=== PATIENT | female | born 1965 | race Two or more races ===

== ENCOUNTER 2020-12-05 09:30 | Inpatient (IN) | payer OTHER ==
[~2020-12-05] VITALS: Ht 154.9 cm; Wt 58.5 kg
[2020-12-05] MEDS ORDERED: GLUCOTROL10 MG PO (12:33)
[2020-12-05] MEDS ORDERED: FOLIC ACID PO (12:34)
[2020-12-05] MEDS ORDERED: IRON PO (12:34)
[2020-12-05] MEDS ORDERED: [UNRECOGNIZED DRUG - OTHER] PO (12:35)
[2020-12-05] MEDS ORDERED: ACTOS15 MG PO (12:36)
[2020-12-05] MEDS ORDERED: LIPITO PO (12:36)
[2020-12-05] MEDS ORDERED: GABAPENT PO ×2 (12:36→12:37)
[2020-12-05] MEDS ORDERED: SINGULAIR10 MG PO (12:37)
[2020-12-05] MEDS ORDERED: JENTADUETO 2.51 EAC2 PO (12:44)
[2020-12-12] MEDS ORDERED: VASOTEC2.5 MG PO (07:56)
[2020-12-12] MEDS ORDERED: FOLIC ACID1 MG (07:57)
[2020-12-12] MEDS ORDERED: GABAPENTIN100 M2 PO (07:57)
[2020-12-12] MEDS ORDERED: GABAPENTIN400 MG PO (07:57)
[2020-12-12] MEDS ORDERED: IRON236 MG PO (07:58)
[2020-12-12] MEDS ORDERED: ATORVASTATIN CA20 MG PO (07:58)
[2020-12-15] MEDS ORDERED: GABAPENTIN400 MG PO (06:08)
[2020-12-15] MEDS ORDERED: OXYC1TAB9 PO (06:08)
== END 2020-12-15 14:02 | disposition home or self-care (01) | DRG 460 ==
LOC: O/R 12-12 06:00 → SURH 12-12 06:00
PROVIDERS: ADMIT Neurological Surgery; ATTEND Neurological Surgery
PROC: 0SB20ZZ Excision of Lumbar Vertebral Disc, Open Approach (ICD-10-PCS; 2020-12-12)
PROC: 0SG30AJ Fusion of Lumbosacral Joint with Interbody Fusion Device, Posterior Approach, Anterior Column, Open Approach (ICD-10-PCS; principal; 2020-12-12 07:00)
DX: M48.07 Spinal stenosis, lumbosacral region (principal); M51.26 Other intervertebral disc displacement, lumbar region; M48.062 Spinal stenosis, lumbar region with neurogenic claudication; M54.16 Radiculopathy, lumbar region